=== PATIENT | male | born 1960 | race Caucasian/White ===

== ENCOUNTER → 2018-10-14 | Day surgery (SDC) | payer BC ==
[2018-10-11 09:34] VITALS: BMI 34.3
[~2018-10-14] MED LIST: Fentanyl 100 MCG/2 ML VIAL ONE; HYDROcodone/Acetaminophen 5/325 mg Tablet ONE; Iothalamate Meglumine 60% 50 ML VIAL FS ONE; Lidocaine 1% PF 5 ML VIAL ONE; Ondansetron PF 4 MG/2 ML Vial ONE; PHENYLEPHRINE-NS 100 MCG/ML 10 ML SYRINGE ONE; PROPOFOL 200 MG/20 ML VIAL ONE
[2018-10-14 09:45] LABS: #Eosinphils 0.4 thou/uL (0.0-0.7); #Lymphocytes 1.1 thou/uL (1.20-3.40); #Monocytes 0.7 thou/uL (0.11-0.59); %Basophils 0.7 % (0.0-1.0); %Eosinophils 5.8 % (0.0-10.0); %Lymphocytes 15.7 % (21.0-51.0); %Monocytes 9.1 % (0.0-10.0); %Neutrophils 68.8 % (42.0-75.0); Hemoglobin 16.4 g/dL (14.0-18.0); Mean Corpuscular HGB CONC 34.8 g/dL (32.0-36.0); Mean Corpuscular Hemoglobin 30.8 pg (27.0-31.0); Mean Corpuscular Volume 88.3 fL (78.0-98.0); Mean Platelet Volume 7.5 fL (7.4-10.4); Platelet Count 156 thou/uL (130-400); RBC Distribution Width 13.2 % (11.5-14.5); Red Blood Cell (RBC) Count 5.31 mill/uL (4.70-6.10); White Blood Cell (WBC) Count 7.2 thou/uL (4.8-10.8)
[2018-10-14 09:52] LABS: INR-International Normal Ratio 0.9; PTT 37.3 SEC (22.9-36.1); Prothrombin Time 12.3 SEC (12.0-14.7)
[2018-10-14 10:08] LABS: Anion Gap 14 mmol/L (10-20); BUN (Urea Nitrogen) 20 mg/dL (8.4-25.7); Calc. Creatinine Clearance 106 mL/min (70-130); Calcium 10.3 mg/dL (7.8-10.44); Carbon Dioxide 25 mmol/L (22-29); Chloride 101 mmol/L (98-107); Estimated GFR-MDRD 56; Glucose 174 mg/dL (70-105); Potassium 4.4 mmol/L (3.5-5.1); Sodium 136 mmol/L (136-145)
--- NOTE | 2018-10-14 12:00 | RAD ---
INTRAPROCEDURAL FLUOROSCOPY FOR RETROGRADE IVP: FINDINGS: Nine fluoroscopic images are submitted for interpretation. Retrograde opacification of the left and right intrarenal collecting system does not demonstrate any persistent filling defect or significant dilatation of the intrarenal or extrarenal. IMPRESSION: Intraoperative fluoroscopy as above. Transcribed Date/Time: 10/14/2018 1:34 PM
--- NOTE | 2018-10-14 14:59 | OP ---
DATE OF PROCEDURE: 10/14/2018 PREOPERATIVE DIAGNOSIS: Bladder tumors. POSTOPERATIVE DIAGNOSIS: Bladder tumors. PROCEDURES PERFORMED: Cysto, transurethral resection of bladder tumour. Four papillary tumors on the right wall and one papillary area of tumor between the trigone and bladder neck. These were all biopsied with cold cup biopsy forceps and sent off. Laser fiber was then used to fulgurate the base and the surrounding mucosa. ESTIMATED BLOOD LOSS: Minimal blood loss. DRAINS: 16-[place] Brito catheter. FINDINGS: There was no stricture disease. There was moderate BPH. There were bladder tumors as mentioned above. Two ureteral orifices with clear efflux. Retrograde studies were done bilaterally that appeared normal without any persistent filling defect or hydronephrosis. Mitomycin-C 40 mg and 40 mL of normal saline were placed at the end of the case and be left in for about half an hour. DESCRIPTION OF PROCEDURE: After obtained written and verbal consent from the patient and after receiving IV antibiotics, he was taken to the operating suite. He was placed in the supine position on the treatment table. PlexiPulses were placed on his lower extremities and turned on. He was given a general anesthetic and oral obturator intubation. He was placed in the dorsal lithotomy position, sterilely prepped and draped. The fluoroscopy unit was positioned over him and a import dispatcher KUB was taken. Cystoscopy was performed with a 22-Zambian sheath, which was well lubricated and passed under direct vision through the male urethra and into the urinary bladder with aid of a 30-degree lens and video camera and monitor. The inside of bladder was examined with both the 30-degree and 70-degree lens with the findings above. We elected to use a biopsy forceps rather than to dilate him up and used the resectoscope for the small tumors. We used cold cup biopsy forceps and removed these tumors from the right wall. One of them was very small and we just used a laser and that the others were slightly larger, probably half a centimeter in size and these were plucked. Passive papillary tumor between the trigone and bladder neck was also identified and we biopsied this. After this point, we brought in a holmium laser fiber and used the laser, destroy the one remaining tumor in the right wall and then to laser the bases in the surrounding mucosa over the other areas that we removed with biopsy forceps. Prior to doing any of this, we actually did bilateral retrograde studies done with a 5-Zambian cone-tipped catheter, flushed with contrast. The right side was done by injecting about 12 to 13 mL of contrast in a retrograde manner, filling up the right ureter and upper collecting system in its entirety and the left side done in a similar manner and drainage was taken also. At the end of the procedure, the instruments were removed. Brito catheter was sterilely inserted. Rectal exam was done, which revealed the prostate of [id number] size with a smooth surface without any nodularity. We placed mitomycin-C into his catheter and placed the catheter plug and it will be left in for about 30 minutes, removed in the recovery room and catheter will also be removed as he should not need one after this case. At this point, the patient was awakened, extubated, and taken by sherry to recovery room. Job ID: [id number]
== END ==
LOC: SDC 08:41
PROVIDERS: ATTEND Urology
PROC: 0T5B8ZZ Destruction of Bladder, Via Natural or Artificial Opening Endoscopic (ICD-10-PCS; principal; 2018-10-14)
DX: C67.8 Malignant neoplasm of overlapping sites of bladder (principal); N40.0 Benign prostatic hyperplasia without lower urinary tract symptoms; E11.9 Type 2 diabetes mellitus without complications; M10.9 Gout, unspecified; Z91.030 Bee allergy status; Z91.048 Other nonmedicinal substance allergy status
CPT/HCPCS: 74420; 80048; 84153; 85025; 85610; 85730; 88305; A4216; C1758; J0690; J2001; J2405; J2704; J3010; J9280

== ENCOUNTER 2020-03-05 07:17 | Outpatient (CLI) | payer BC ==
[2020-03-05 11:40] LABS: #Basophils 0.1 10x3/uL (0.0-0.2); #Eosinphils 0.5 10x3/uL (0.0-0.5); #Monocytes 0.7 10x3/uL (0.0-1.1); #Neutrophils 4.9 10x3/uL (1.5-8.4); %Basophils 0.8 % (0.0-2.0); %Eosinophils 6.3 % (0.0-6.0); %Lymphocytes 15.6 % (18.0-47.0); %Monocytes 9.8 % (0.0-10.0); %Neutrophils 67.1 % (40.0-75.0); Hemoglobin 13.7 g/dL (14.0-18.0); Mean Corpuscular HGB CONC 33.7 G/DL (32.0-36.0); Mean Corpuscular Hemoglobin 30.2 PG (27.0-33.0); Mean Corpuscular Volume 89.4 fl (80.0-100.0); Mean Platelet Volume 10.3 fl (7.4-10.4); Platelet Count 140 10x3/uL (130-400); RBC Distribution Width 13.7 % (11.5-14.5); Red Blood Cell (RBC) Count 4.54 10x6/uL (4.40-5.80); White Blood Cell (WBC) Count 7.3 10x3/uL (4.5-11.0)
[2020-03-05 11:55] LABS: Anion Gap 16 mmol/L (10-20); BUN (Urea Nitrogen) 22 mg/dL (8.4-25.7); Calc. Creatinine Clearance 0 mL/min (70-130); Calcium 9.7 mg/dL (7.8-10.44); Carbon Dioxide 21 mmol/L (23-31); Chloride 102 mmol/L (98-107); Glucose 145 mg/dL (80-115); Potassium 4.3 mmol/L (3.5-5.1); Sodium 135 mmol/L (136-145)
[2020-03-05 11:59] LABS: PTT 32.3 sec (22.0-33.0); Prothrombin Time 10.9 sec (9.5-12.1)
== END 2020-03-05 07:18 | disposition home or self-care (01) ==
LOC: LABBT 07:17
PROVIDERS: ATTEND Urology
DX: Z01.812 Encounter for preprocedural laboratory examination (principal); N40.1 Benign prostatic hyperplasia with lower urinary tract symptoms; R35.1 Nocturia
CPT/HCPCS: 80048; 85025; 85610; 85730

== ENCOUNTER 2020-03-11 10:04 | Day surgery (SDC) | payer BC ==
[2020-03-09 10:42] VITALS: BMI 35.6
[~2020-03-11 10:04] MED LIST changes: +Dexamethasone 20 MG/5 ML VIAL ONE; -Fentanyl 100 MCG/2 ML VIAL ONE; -HYDROcodone/Acetaminophen 5/325 mg Tablet ONE; -Iothalamate Meglumine 60% 50 ML VIAL FS ONE; -PHENYLEPHRINE-NS 100 MCG/ML 10 ML SYRINGE ONE
[2020-03-11] MEDS ORDERED: Iothalamate Meglumine 60% 50 ML VIAL FS ONE (13:32)
[2020-03-11] MEDS ORDERED: Fentanyl 100 MCG/2 ML VIAL ONE (13:40)
[2020-03-11] MEDS ORDERED: Midazolam HCl 2 mg/2 ml Vial ONE (13:40)
--- NOTE | 2020-03-11 17:52 | RAD ---
BILATERAL RETROGRADE PYELOGRAM: History: Renal calculi FINDINGS: Contrast was injected into a nondilated right and left collecting system. I do not appreciate any def inite filling defects. IMPRESSION: Unremarkable bilateral retropyelogram. POS: GINGER
--- NOTE | 2020-03-11 21:12 | OP ---
DATE OF PROCEDURE: 03/11/2020 PREOPERATIVE DIAGNOSIS: Recurrent bladder tumor. POSTOPERATIVE DIAGNOSIS: Recurrent bladder tumor. PROCEDURE PERFORMED: Cysto transurethral resection of a bladder tumor, bilateral retrograde. ANESTHETIC: General. ESTIMATED BLOOD LOSS: Minimal. FINDINGS: He had about 0.5 cm tumor on the floor to the right of the midline behind the trigone that was cauterized. He had some very small papillary tumors on the posterior wall of 2 different groups. They were quite small and these were fulgurated. The catheter was not left indwelling. We did not place mitomycin-C. DESCRIPTION OF PROCEDURE: After obtaining written and verbal consent from the patient, after receiving preoperative antibiotics, he was taken to the operating suite. He was placed in a supine position on the treatment table. PlexiPulses were placed in his lower extremities. He was given a general anesthetic and oral obturator intubation. Placed in a dorsal lithotomy position. Sterilely prepped and draped. Cystoscopy was performed with a 22-[place]or[place] sheath. This was well lubricated, passed under direct vision through the male urethra into the urinary bladder with the aid of a 30-degree lens and video camera and monitor. The bladder was filled and emptied numerous times as it was examined with both 30 and 70-degree lens. Using a 30-degree lens, we brought in a cone-tipped catheter, flushed with contrast, placed initially in the right ureteral orifice and slowly injected in a retrograde manner about 15 mL of contrast filling up his collecting system. We did the same on the left side. There was no persistent filling defects or areas of obstruction or extravasation. Both sides drained well. At this point, we removed these instruments and passed a 24-Comoran resectoscope sheath with a visual sheath with 30-degree lens through the urethra into the bladder. We then brought in our Massey resectoscope and our bladder tumor loop. We ended up using this then to resect a small 0.5 cm tumor on the floor in the right side and then we used this to cauterize these other sites. The only specimen sent off was one from the bladder tumor. At this point, the bladder was drained. The instruments were removed and the patient was taken out of dorsal lithotomy position, awakened, extubated, and taken by stretcher to the recovery room. Job ID: [id number]
== END 2020-03-11 15:58 | disposition home or self-care (01) ==
LOC: SDC 10:04
PROVIDERS: ATTEND Urology
PROC: 0T5B8ZZ Destruction of Bladder, Via Natural or Artificial Opening Endoscopic (ICD-10-PCS; principal; 2020-03-11)
DX: C67.0 Malignant neoplasm of trigone of bladder (principal); E11.9 Type 2 diabetes mellitus without complications; I10 Essential (primary) hypertension; M10.9 Gout, unspecified; G47.33 Obstructive sleep apnea (adult) (pediatric); Z79.4 Long term (current) use of insulin; Z79.899 Other long term (current) drug therapy; Z91.030 Bee allergy status; Z91.048 Other nonmedicinal substance allergy status
CPT/HCPCS: 74420; 88305; 93005; 93010; J0690; J1100; J2250; J2405; J2704; J3010

== ENCOUNTER 2021-08-24 11:42 | Outpatient (CLI) | payer BC ==
[2020-03-08 18:31] LABS: Bilirubin Neg (Negative); Blood, Urine 25 (Negative); Clarity Clear (Clear); Glucose, Urine (Dipstick) 250 mg/dL (Negative); Ketone, Urine Negative (Negative); Leukocyte Negative (Negative); Nitrite Negative (Negative); Protein, Urine (Dipstick) 100 mg/dl (Neg-Trace); Urobilinogen Normal mg/dL (Less than 2)
[2020-03-08 18:33] LABS: Urine Culture Reflex No No
[2020-03-08 18:38] LABS: Bacteria/HPF Rare-Few HPF (None Seen); RBC/HPF 0-3 HPF (0-3); Squamous Epithelial 0-3 HPF (0-3); WBC/HPF 0-3 HPF (0-3)
[2021-08-24 13:28] LABS: Hemoglobin 13.7 g/dL (13.5-17.5); Mean Corpuscular HGB CONC 33.2 g/dL (32.0-36.0); Mean Corpuscular Hemoglobin 29.3 pg (27.0-33.0); Mean Corpuscular Volume 88.2 fl (81.2-95.1); Mean Platelet Volume 10.1 fl (7.4-10.4); Platelet Count 243 10x3/uL (150-450); RBC Distribution Width 13.9 % (11.5-14.5); Red Blood Cell (RBC) Count 4.68 10x6/uL (4.32-5.72)
[2021-08-24 13:38] LABS: Anion Gap 15 mmol/L (10-20); BUN (Urea Nitrogen) 26 mg/dL (8.4-25.7); Calc. Creatinine Clearance 0 mL/min (70-130); Calcium 10.2 mg/dL (7.8-10.44); Carbon Dioxide 28 mmol/L (23-31); Chloride 102 mmol/L (98-107); Estimated GFR 64; Glucose 96 mg/dL (80-115); Sodium 140 mmol/L (136-145)
[2021-08-24 14:12] LABS: PTT 30.8 sec (22.0-33.0); Prothrombin Time 10.9 sec (9.5-12.1)
== END 2021-08-24 11:43 | disposition home or self-care (01) ==
LOC: LABBT 11:42
PROVIDERS: ATTEND Urology
DX: Z01.818 Encounter for other preprocedural examination (principal); C67.9 Malignant neoplasm of bladder, unspecified; Z20.822 Contact with and (suspected) exposure to COVID-19
CPT/HCPCS: 80048; 81001; 85027; 85610; 85730; 87086; 87811; 93005; 93010

== ENCOUNTER 2021-08-29 06:07 | Day surgery (SDC) | payer BC ==
[2021-08-25 10:03] VITALS: BMI 35.2
[2021-08-29] MEDS ORDERED: mitoMYcin 40 MG in Sodium Chloride 0.9% 40 ML I-VESIC SCH (06:30)
[2021-08-29] MEDS ORDERED: CEFAZOLIN 2 GM in Sodium Chloride 0.9% 100 ML IVPB SCH (06:30)
[2021-08-29] MEDS ORDERED: Famotidine/PF 20 mg/2ml Vial ONE (06:42)
[2021-08-29] MEDS ORDERED: fentaNYL Citrate/PF 100 MCG/2 ML SYRINGE ONE ×2 (06:42→09:04)
[2021-08-29] MEDS ORDERED: SUGAMMADEX SODIUM 200 MG/2 ML VIAL ONE (06:42)
[2021-08-29] MEDS ORDERED: Iopamidol 45 ML ONE (07:06)
[2021-08-29] MEDS ORDERED: CEFAZOLIN 2 GM VIAL ONE (07:25)
[2021-08-29] MEDS ORDERED: Sodium Chloride 0.9% 100 ML ONE (07:25)
[2021-08-29] MEDS ORDERED: Ondansetron PF 4 MG/2 ML Vial ONE (07:37)
[2021-08-29] MEDS ORDERED: Metoclopramide HCl 10 MG/2 ML VIAL ONE (07:37)
[2021-08-29] MEDS ORDERED: Lidocaine 1% PF 5 ML VIAL ONE (07:37)
[2021-08-29] MEDS ORDERED: Phenylephrine 10 MG/ML VIAL ONE (07:37)
[2021-08-29] MEDS ORDERED: PROPOFOL 200 MG/20 ML VIAL ONE (07:37)
[2021-08-29] MEDS ORDERED: Ketorolac Tromethamine 30 MG/ML VIAL ONE (07:37)
== END 2021-08-29 10:35 | disposition home or self-care (01) ==
LOC: SDC 06:07
PROVIDERS: ATTEND Urology
PROC: 3E0K705 Introduction of Other Antineoplastic into Genitourinary Tract, Via Natural or Artificial Opening (ICD-10-PCS; principal; 2021-08-29)
PROC: 0TBB8ZX Excision of Bladder, Via Natural or Artificial Opening Endoscopic, Diagnostic (ICD-10-PCS; principal; 2021-08-29)
DX: C67.4 Malignant neoplasm of posterior wall of bladder (principal); I10 Essential (primary) hypertension; E11.9 Type 2 diabetes mellitus without complications; G47.33 Obstructive sleep apnea (adult) (pediatric); Z79.84 Long term (current) use of oral hypoglycemic drugs; Z79.899 Other long term (current) drug therapy; Z91.030 Bee allergy status; Z91.048 Other nonmedicinal substance allergy status
CPT/HCPCS: 74420; 88305; J0690; J1885; J2370; J2405; J2704; J2765; J3490; J9280; Q9967; S0028

== ENCOUNTER 2024-04-08 06:13 | Day surgery (SDC) | payer BC, MEDICARE ==
[2024-04-02 09:19] VITALS: BMI 24.6
[2024-04-08] MEDS ORDERED: Lidocaine 4% PF 5 ML AMP ONE ×2 (06:53)
[2024-04-08] MEDS ORDERED: PROPOFOL 20 ML ONE (06:57)
[2024-04-08] MEDS ORDERED: fentaNYL PF 100 MCG/2 ML SYRINGE ONE ×2 (06:57→09:13)
[2024-04-08] MEDS ORDERED: Rocuronium Bromide 10 MG/ML (10ML VIAL) ONE (06:58)
[2024-04-08] MEDS ORDERED: Lidocaine 1% PF 5 ML VIAL ONE (06:58)
[2024-04-08] MEDS ORDERED: CEFAZOLIN 2 GM VIAL ONE (07:07)
[2024-04-08] MEDS ORDERED: Sodium Chloride 0.9% 100 ML ONE (07:07)
[2024-04-08] MEDS ORDERED: Ondansetron PF 4 MG/2 ML Vial ONE (07:37)
[2024-04-08] MEDS ORDERED: Dexamethasone 4 mg/ml Vial ONE (07:37)
[2024-04-08] MEDS ORDERED: Ketorolac Tromethamine 30 MG (1 mL) VIAL ONE (07:37)
[2024-04-08] MEDS ORDERED: ePHEDrine Sulfate 50 MG/10 ML VIAL ONE (07:45)
[2024-04-08] MEDS ORDERED: mitoMYcin 40 MG in Sodium Chloride 0.9% 40 ML IV SCH (07:45)
[2024-04-08] MEDS ORDERED: mitoMYcin 40 MG in Sodium Chloride 0.9% 40 ML I-VESIC SCH (08:00)
[2024-04-08] MEDS ORDERED: Iopamidol 30 ML ONE (10:12)
== END 2024-04-08 12:03 | disposition home or self-care (01) ==
LOC: SDC 06:13
PROVIDERS: ATTEND Urology
PROC: 0T768DZ Dilation of Right Ureter with Intraluminal Device, Via Natural or Artificial Opening Endoscopic (ICD-10-PCS; principal; 2024-04-08)
PROC: BT1DZZZ Fluoroscopy of Right Kidney, Ureter and Bladder (ICD-10-PCS; principal; 2024-04-08)
PROC: 0T568ZZ Destruction of Right Ureter, Via Natural or Artificial Opening Endoscopic (ICD-10-PCS; principal; 2024-04-08)
PROC: 0T5B8ZZ Destruction of Bladder, Via Natural or Artificial Opening Endoscopic (ICD-10-PCS; principal; 2024-04-08)
DX: C67.6 Malignant neoplasm of ureteric orifice (principal); N32.89 Other specified disorders of bladder; I12.9 Hypertensive chronic kidney disease with stage 1 through stage 4 chronic kidney disease, or unspecified chronic kidney disease; N18.2 Chronic kidney disease, stage 2 (mild); E11.22 Type 2 diabetes mellitus with diabetic chronic kidney disease; E78.00 Pure hypercholesterolemia, unspecified; G47.33 Obstructive sleep apnea (adult) (pediatric); Z90.49 Acquired absence of other specified parts of digestive tract; Z98.890 Other specified postprocedural states; Z91.030 Bee allergy status; Z91.048 Other nonmedicinal substance allergy status; Z79.85 Long-term (current) use of injectable non-insulin antidiabetic drugs; Z79.899 Other long term (current) drug therapy
CPT/HCPCS: 74420; 88305; C2617; J1100; J1885; J2405; J2704; J9280; Q9967